=== PATIENT | male | born 1985 ===

== ENCOUNTER 2019-11-23 07:52 | Emergency (ER) | payer BC ==
[~2019-11-23] VITALS: Ht 188 cm; Wt 149.2 kg
--- NOTE | 2019-11-23 08:18 | NUR ---
PT IN HOSPITAL GOWN. PT PLACED ON VITALS MONITORS. PT GIVEN URINE CUP FOR SPECIMEN COLLECTION. WILL CONTINUE TO MONITOR. CALL LIGHT WITHIN REACH.
[2019-11-23 08:27] LABS: BASOPHILS % (AUTO) 0 % (0-1); EOSINOPHILS % (AUTO) 1 % (1-7); LYMPHOCYTES % (AUTO) 15 % (22-44); MEAN CORPUSCULAR HEMOGLOBIN 30.6 pg (27.5-34.5); MEAN CORPUSCULAR HGB CONC 33.8 g/dL (33.2-36.2); MEAN PLATELET VOLUME 7.3 fL (7.4-10.4); MONOCYTES % (AUTO) 7 % (2-9); NEUTROPHILS % (AUTO) 77 % (42-75); PLATELET COUNT 431 x10^3/uL (130-400); RED BLOOD COUNT 5.13 x10^6/uL (4.38-5.82); RED CELL DISTRIBUTION WIDTH 13.8 % (9.4-14.8)
[2019-11-23 08:33] LABS: MD NO
[2019-11-23 08:40] LABS: ALBUMIN 3.9 g/dL (3.4-5.0); ANION GAP 5 mmol/L (5-15); CHLORIDE 105 mmol/L (98-107)
[2019-11-23 08:44] LABS: ALANINE AMINOTRANSFERASE 33 U/L (12-78); ALKALINE PHOSPHATASE 77 U/L (45-117); BILIRUBIN,TOTAL 1.3 mg/dL (0.2-1.0); TOTAL PROTEIN 8.4 g/dL (6.4-8.2)
--- NOTE | 2019-11-23 08:48 | NUR ---
PT ABLE TO PROVIDE A URINE SAMPLE. URINE WALKED TO LAB. US AT BEDSIDE AT THIS TIME.
[2019-11-23 09:19] LABS: MICROSCOPIC INDICATED
--- NOTE | 2019-11-23 09:40 | NUR ---
INFORMED PT OF NEXT TEST ORDERED. NO STATED COMPLAINTS FROM PT AT THIS TIME.
[2019-11-23] MEDS ORDERED: SODIUM CHLORIDE FLUSH 10ML SYR IVF ONE (10:00)
--- NOTE | 2019-11-23 10:45 | NUR ---
PT IN CT AT THIS TIME.
[2019-11-23] MEDS ORDERED: OMNIPAQUE 350 MG/ML, 100ML BOTTLE ONE (10:48)
--- NOTE | 2019-11-23 11:27 | NUR ---
ALL RESULTS BACK. PT UP FOR RECHECK.
[2019-11-23 12:07] VITALS: BP 141/80
[2019-11-23] MEDS ORDERED: SUCR1TAB33 PO (12:33)
[2019-11-23] MEDS ORDERED: OMEP40CA42 PO (12:33)
[2019-11-23] MEDS ORDERED: LISI-170 PO (12:33)
== END 2019-11-23 12:35 | disposition home or self-care (01) ==
LOC: ED 08:26
DX: K80.20 Calculus of gallbladder without cholecystitis without obstruction (principal); R11.0 Nausea; I10 Essential (primary) hypertension; E11.9 Type 2 diabetes mellitus without complications
CPT/HCPCS: 36415; 74177; 76700; 80053; 81001; 83690; 85025; 99285; Q9967

== ENCOUNTER 2020-02-25 04:19 | Emergency (ER) | payer BC ==
[~2020-02-25] VITALS: Ht 185.4 cm; Wt 134.4 kg
[~2020-02-25 04:19] MED LIST: LISI-170 PO; OMEP40CA42 PO; SUCR1TAB33 PO
[2020-02-25] MEDS ORDERED: MAALOX/HYOSCYAMINE/LIDOCAINE 45 ML BTL ONE (04:53)
[2020-02-25] MEDS ORDERED: FAMOTIDINE 20 MG TABLET ONE (04:53)
[2020-02-25] MEDS ORDERED: DICYCLOMINE 20 MG TABLET ONE (04:53)
[2020-02-25] MEDS ORDERED: FAMOTIDINE 20 MG TABLET PO ONE (05:00)
[2020-02-25] MEDS ORDERED: DICYCLOMINE 20 MG TABLET PO ONE (05:00)
[2020-02-25] MEDS ORDERED: MAALOX/HYOSCYAMINE/LIDOCAINE 45 ML BTL PO ONE (05:00)
[2020-02-25 05:17] LABS: BASOPHILS % (AUTO) 0 % (0-1); EOSINOPHILS % (AUTO) 1 % (1-7); LYMPHOCYTES % (AUTO) 21 % (22-44); MEAN CORPUSCULAR HEMOGLOBIN 30.8 pg (27.5-34.5); MEAN CORPUSCULAR HGB CONC 34.3 g/dL (33.2-36.2); MEAN PLATELET VOLUME 7.5 fL (7.4-10.4); MONOCYTES % (AUTO) 8 % (2-9); NEUTROPHILS % (AUTO) 70 % (42-75); PLATELET COUNT 353 x10^3/uL (130-400); RED BLOOD COUNT 4.65 x10^6/uL (4.38-5.82); RED CELL DISTRIBUTION WIDTH 13.3 % (9.4-14.8)
[2020-02-25 05:19] LABS: ALANINE AMINOTRANSFERASE 29 U/L (12-78); ALBUMIN 3.4 g/dL (3.4-5.0); ANION GAP 8 mmol/L (5-15); CALCIUM 8.8 mg/dL (8.5-10.1); CHLORIDE 108 mmol/L (98-107); CREATININE 0.84 mg/dL (0.7-1.3)
[2020-02-25 05:21] LABS: ALKALINE PHOSPHATASE 65 U/L (45-117); BILIRUBIN,TOTAL 1.2 mg/dL (0.2-1.0); MD NO; TOTAL PROTEIN 7.1 g/dL (6.4-8.2)
[2020-02-25 06:15] VITALS: BP 117/69
[2020-02-25] MEDS ORDERED: IPRA5POW NAS (06:20)
--- NOTE | 2020-02-25 06:24 | NUR ---
Pt to [facility]. UA provided and sent to lab. Pt steady on feet, A&O, states pain is intermittent, and has nausea at times. Pt back to bed and on monitor.
[2020-02-25] MEDS ORDERED: ONDANSETRON ODT 4 MG PO ONE (06:30)
[2020-02-25 06:31] LABS: MICROSCOPIC NOT IND
[2020-02-25] MEDS ORDERED: ONDANSETRON ODT 4 MG ONE (06:36)
== END 2020-02-25 07:04 | disposition home or self-care (01) ==
LOC: ED 05:52
DX: K59.00 Constipation, unspecified (principal); R10.33 Periumbilical pain; R10.84 Generalized abdominal pain; R19.7 Diarrhea, unspecified; I10 Essential (primary) hypertension; E11.9 Type 2 diabetes mellitus without complications; E66.01 Morbid (severe) obesity due to excess calories; Z68.39 Body mass index [BMI] 39.0-39.9, adult; Z90.49 Acquired absence of other specified parts of digestive tract
CPT/HCPCS: 36415; 74021; 80053; 81003; 83690; 85025; 99284; Q0162

== ENCOUNTER 2020-02-26 11:54 | Emergency (ER) | payer BC ==
[~2020-02-26] VITALS: Ht 185.4 cm; Wt 135.3 kg
[~2020-02-26 11:54] MED LIST changes: +IPRA5POW NAS
--- NOTE | 2020-02-26 12:14 | NUR ---
PT AMBULATORY TO ROOM 24 W/ C/O ABD PAIN. PT STATES HE WAS SEEN HERE FOR SAME AND WAS DX W/ CONSTIPATION. PT STATES BOUTS OF DIARRHEA W/ CONSTIPATION. PT STATES ABD PAIN IS CENTERED. PT RESTING ON RADHA. DAR. MONITORS APPLIED.
[2020-02-26] MEDS ORDERED: ONDANSETRON 2MG/ML, 2ML ONE (12:47)
[2020-02-26] MEDS ORDERED: ONDANSETRON 2MG/ML, 2ML IVPush ONE (13:00)
[2020-02-26 13:07] LABS: MICROSCOPIC NOT IND
[2020-02-26 13:07] LABS: BASOPHILS % (AUTO) 0 % (0-1); EOSINOPHILS % (AUTO) 0 % (1-7); LYMPHOCYTES % (AUTO) 11 % (22-44); MEAN CORPUSCULAR HEMOGLOBIN 30.7 pg (27.5-34.5); MEAN CORPUSCULAR HGB CONC 33.8 g/dL (33.2-36.2); MEAN PLATELET VOLUME 7.8 fL (7.4-10.4); MONOCYTES % (AUTO) 6 % (2-9); NEUTROPHILS % (AUTO) 83 % (42-75); PLATELET COUNT 367 x10^3/uL (130-400); RED BLOOD COUNT 4.77 x10^6/uL (4.38-5.82); RED CELL DISTRIBUTION WIDTH 13.4 % (9.4-14.8)
[2020-02-26 13:09] LABS: MD NO
[2020-02-26 13:19] LABS: ALBUMIN 3.8 g/dL (3.4-5.0); ANION GAP 7 mmol/L (5-15); CALCIUM 8.8 mg/dL (8.5-10.1); CHLORIDE 103 mmol/L (98-107)
[2020-02-26 13:23] LABS: ALANINE AMINOTRANSFERASE 29 U/L (12-78); ALKALINE PHOSPHATASE 76 U/L (45-117); BILIRUBIN,TOTAL 1.2 mg/dL (0.2-1.0); CREATININE 0.97 mg/dL (0.7-1.3)
--- NOTE | 2020-02-26 13:33 | NUR ---
PT CHART REVIEWED AND PLACED FOR RECHECK
[2020-02-26] MEDS ORDERED: PROMETHAZINE 25 MG/ML, 1ML ONE (13:49)
--- NOTE | 2020-02-26 13:59 | NUR ---
PT TAKEN TO CT IN STABLE CONDITION.
[2020-02-26] MEDS ORDERED: PROMETHAZINE 25 MG/ML, 1ML IM ONE (14:00)
[2020-02-26] MEDS ORDERED: OMNIPAQUE 350 MG/ML, 150 ML BOTTLE ONE (14:13)
--- NOTE | 2020-02-26 14:24 | NUR ---
PT CHART REVIEWED AND PLACED FOR RECHECK.
--- NOTE | 2020-02-26 14:31 | NUR ---
BREAK RN: PT UPRIGHT ON GURNEY AWAKE & REPORTS "PAIN & NAUSEA A LITTLE BETTER", NAD, NO NEEDS AT THIS TIME, CALL LIGHT WITHIN REACH.
[2020-02-26 15:28] VITALS: BP 137/54
== END 2020-02-26 15:29 | disposition home or self-care (01) ==
LOC: ED 13:27
DX: R10.9 Unspecified abdominal pain (principal); R11.0 Nausea; R19.7 Diarrhea, unspecified; I10 Essential (primary) hypertension; E11.9 Type 2 diabetes mellitus without complications; Z90.49 Acquired absence of other specified parts of digestive tract
CPT/HCPCS: 36415; 74177; 80053; 81003; 83690; 85025; 96372; 96374; 99285; J2405; J2550; Q9967